=== PATIENT | female | born 1985 | race Caucasian/White ===

== ENCOUNTER 2017-02-26 15:10 | Emergency (ER) | payer MEDICAID ==
[~2017-02-26] VITALS: Ht 162.6 cm; Wt 68.0 kg
[2017-02-26 15:12] VITALS: BP 119/71; PULSE 92; RESP 16; TEMP 98.4; O2SAT 100
[2017-02-26] MEDS ORDERED: CLON0.5T PO (16:28)
[2017-02-26] MEDS ORDERED: REME15TA PO (16:28)
[2017-02-26] MEDS ORDERED: SYNT25TA PO (16:28)
[2017-02-26] MEDS ORDERED: BUPR150CR PO (16:28)
--- NOTE | 2017-02-26 16:50 | PD ---
HPI Chief Complaint: Related Problem Time Seen by Provider: 16:49 Travel History International Travel<30 days: No Contact w/Intl Traveler<30days: No Traveled to known affect area: No History of Present Illness HPI Patient was sent over by Dr. Geiger after being seen at her office for vaginal bleeding in . Patient states that she started having a little brown discharge this morning after wiping and then started having heavier bleeding. Patient states she was sent here after she was found to be having heavy bleeding on pelvic exam by Dr. Geiger and was unable to visualize her cervix secondary to the bleeding and was subsequently sent to the emergency department for an ultrasound and blood work.. Patient states since being in the emergency department bleeding is stopped. Patient denies any abdominal pain with this, fevers, dysuria, back pain, nausea, vomiting. Patient is A2. Patient reports she is on vitamin. PFSH Past Medical History Anxiety: Yes Depression: Yes Influenza Vaccination: No ?: LMP: 12/04/2016 : 5 Para: 2 Miscarriage: 2 Past Surgical History Other Surgery: Yes (SKIN GRAFTS LEFT ARM ) Family History Family Myocardial Infarction: Yes (MOTHERS SIDE) Social History Alcohol Use: No Tobacco Use: Yes (09/30 ppd) Substance Use: No Allergies-Medications (Allergen,Severity, Reaction): Coded Allergies: Morphine (Verified Allergy, Severe, Anaphylaxis, 02/26/17) Penicillin (Verified Allergy, Unknown, Nausea/Vomiting, 02/26/17) Reported Meds & Prescriptions Reported Meds & Active Scripts Active Reported Synthroid (Levothyroxine Sodium) 25 Mcg Tab 25 Mcg PO DAILY Clonazepam 0.5 Mg Tab 0.5 Mg PO BID Wellbutrin SR 12 HR (Bupropion HCl) 150 Mg Tab 150 Mg PO Q12HR Remeron (Mirtazapine) 15 Mg Tab 25 Mg PO HS Review of Systems Except as stated in HPI: all other systems reviewed are Neg Physical Exam Narrative GENERAL: Well-developed, well nourished, in no acute distress, and non-ill appearing. SKIN: Focused skin assessment warm and dry. HEAD: Atraumatic. Normocephalic. EYES: Pupils equal and round. EOMI. No scleral icterus. No injection or drainage. ENT: No nasal bleeding or discharge. Mucous membranes pink and moist. NECK: Trachea midline. Supple. No nuclear rigidity. CARDIOVASCULAR: Regular rate and rhythm. No murmur appreciated. RESPIRATORY: No accessory muscle use. No respiratory distress. GASTROINTESTINAL: Abdomen soft, non-tender, nondistended. Hepatic and splenic margins not palpable. Normal bowel sounds 4. No pulsatile mass. GENITOURINARY: Normal external genitalia without lesions or erythema. Cervical os was closed on bimanual exam. No cervical motion tenderness. Bilateral adnexa nontender without masses. MUSCULOSKELETAL: No obvious deformities. No clubbing. No cyanosis. No edema. Full range of motion. NEUROLOGICAL: Awake and alert. No obvious cranial nerve deficits. Motor grossly within normal limits. Normal speech. PSYCHIATRIC: Appropriate mood and affect; insight and judgment normal. Data Data Last Documented VS Vital Signs Date Time Temp Pulse Resp B/P Pulse Ox O2 Delivery O2 Flow Rate FiO2 02/26/17 15:12 98.4 92 16 119/71 100 Room Air Orders Beta Hcg (Quant/Titer) (02/26/17 16:44) Complete Rh (02/26/17 16:44) Ed Urine Pregnancytest Poc (02/26/17 17:16) Us Pelvis (Ques Pr/Ect)W Trans (02/26/17 ) Labs Laboratory Tests Test 02/26/17 17:12 Human Chorionic Gonadotropin, 4631 MIU/ML Quant Blood Type O POSITIVE Rho(D) Type POSITIVE MDM Medical Decision Making Medical Screen Exam Complete: Yes Emergency Medical Condition: Yes Medical Record Reviewed: Yes Interpretation(s) Ultrasound read by radiologist shows: 1. The gestational sac is seen involving the uterus. No pole or yolk sac is currently seen. Differential diagnostic considerations include a blighted ovum versus an early IUP too early for depiction of yolk sac or pole. 2. Corpus luteal cyst involving the right ovary. 3. No ectopic observed. Differential Diagnosis Incomplete , threatened , single intrauterine , subchorionic hemorrhage, completed , other Narrative Course Dr. Moya spoke with OB on-call on the who recommends follow-up with Dr. Booth or Dr. Geiger next week for reevaluation. Return for any worsening symptoms fever, nausea, vomiting, or severe abdominal pain. Patient presented with vaginal bleeding and the test was positive. Ultrasound was performed and there is no obvious evidence of a uterine . However the quantitative B-HcG was low and early versus threatened versus incomplete cannot be entirely excluded by sonography. There is no evidence to suggest obvious ectopic or ruptured ectopic , nor cervicitis, PID or torsion at this time. There was no evidence to support colitis, diverticulitis, obstruction, abdominal or femoral herniation , volvulus, early appendicitis, or hernial incarceration or strangulation at this time. Patient is stable. There is no RH incompatibility. The patient therefore can be released at this time with acute follow up. Patient was warned on the possibility of an threatened miscarriage/retained products of conception and to return IMMEDIATELY if the pain and/or bleeding worsened, felt faint or passed out. The patient was instructed to follow up with OB next week. She was given warnings to return if bleeding worsened, felt faint or passed out, fever, worsening pain, inability to tolerate fluids, or as needed. The patient agreed with plan and stated will follow up as instructed. Patient in no obvious distress upon re-evaluation. All pertinent laboratory/ Radiology result(s) discussed with patient/family. Discussed patient with Dr. Moya prior to discharge, is in agreement plan of care and disposition. Any questions/concerns in reference to patient diagnosis/condition discussed and clarified prior to patient's discharge. Reinforced sheer importance of close follow up with patient's primary physician or primary care clinic and/or OB. Instructed patient to return to ED immediately, if symptoms return/worsen. Pt showed understanding of above instructions. Further instructions and recommendations were detailed in discharge paperwork. Pt ambulated without difficulty out of ED at discharge. Diagnosis Primary Impression: Threatened Additional Impression: Ovarian cyst Patient Instructions: General Instructions, Ovarian Cyst (DC), Threatened Miscarriage (ED) Additional Instructions: Follow-up with your primary care physician next week for reevaluation. Return to the emergency department if symptoms get worse, fevers, abdominal pain, inability to keep food or water down, or for other concerns. Disposition: 01 DISCHARGE HOME Condition: Stable Dave Brewster Feb 26, 2017 16:50
[2017-02-26 18:12] LABS: BETA HCG QUANT 4631 MIU/ML (0-5)
--- NOTE | 2017-02-26 19:06 | RADRPT ---
EXAM DATE/TIME: 02/26/2017 18:15 [facility] COMPARISON: No previous studies available for comparison. INDICATIONS : Bleeding with . LAB(S): [facility] MEDICAL HISTORY : . Miscarriage x 2. Anxiety. Depression. SURGICAL HISTORY : Right arm surgery with skin graft. Right knee surgery. ENCOUNTER: Initial ACUITY: 1 day PAIN SCORE: 0/10 LOCATION: Bilateral pelvis MEASUREMENTS: UTERUS: 12.1 x 8.8 x 7.0 cm ENDOMETRIAL STRIPE: 12 mm RIGHT OVARY: 2.9 x 2.9 x 2.1 cm LEFT OVARY: 2.6 x 2.1 x 1.3 cm FREE FLUID: No CROWN RUMP LENGTH: Non visualized. = WKS DAYS FHR: Non visualized. BPM FINDINGS: UTERUS: A cystic structure consistent with a gestational sac is observed. No pole or yolk sac appreciat ed. There is an elliptical nature to the gestational sac. The uterus is otherwise unremarkable. RIGHT OVARY: A thick walled cyst is seen involving the right ovary measuring 2.2 cm in diameter. No hyperemia. No pole or yolk sac. LEFT OVARY: Ovary contains no mass or significant cystic lesion. MISCELLANEOUS: No free fluid. CONCLUSION: 1. The gestational sac is seen involving the uterus. No pole or yolk sac is currently seen. Dif ferential diagnostic considerations include a blighted ovum versus an early IUP too early for depicti on of yolk sac or pole. 2. Corpus luteal cyst involving the right ovary. 3. No ectopic observed. Dread Fall Jr., MD on February 26, 2017 at 18:59 Board Certified Radiologist. This report was verified electronically.
== END 2017-02-26 20:13 | disposition home or self-care (01) ==
LOC: NEPD 15:10
DX: O20.0 Threatened abortion (principal); N83.201 Unspecified ovarian cyst, right side
CPT/HCPCS: 76700; 76817; 84702; 84703; 86901; 99284